=== PATIENT | male | born 1985 | race Caucasian/White ===

== ENCOUNTER 2019-04-09 20:53 | Emergency (ER) | payer OTHER ==
[~2019-04-09] VITALS: Ht 167.6 cm; Wt 95.3 kg
[~2019-04-09 20:53] MED LIST: CIPRO500 MG PO; IMODIUM A-D2 MG PO; LEVSINEX0.375 M1 PO
[2019-04-09] MEDS ORDERED: DOLOGEN CAPLET1 EACH PO (22:40)
[2019-04-09] MEDS ORDERED: OSEL75CA PO (22:40)
[2019-04-09] MEDS ORDERED: TUSNEL LIQUID178 ML PO (22:40)
[2019-04-09] MEDS ORDERED: XOFLUZA40 MG PO (22:40)
[2019-04-13] MEDS ORDERED: PROMETHAZINE-D473 M1 PO ×2 (04:34→04:37)
[2019-04-13] MEDS ORDERED: KETO10TA2 PO ×2 (04:34→04:37)
== END 2019-04-09 22:54 | disposition home or self-care (01) ==
LOC: ER 20:53
DX: J11.1 Influenza due to unidentified influenza virus with other respiratory manifestations (principal)

== ENCOUNTER → 2019-04-13 | Emergency (ER) | payer OTHER ==
[~2019-04-13] VITALS: Ht 167.6 cm; Wt 95.3 kg
[~2019-04-13] MED LIST changes: +DOLOGEN CAPLET1 EACH PO; +KETO10TA2 PO; +OSEL75CA PO; +PROMETHAZINE-D473 M1 PO; +TUSNEL LIQUID178 ML PO; +XOFLUZA40 MG PO
== END | disposition home or self-care (01) ==
LOC: ER 00:41
DX: H10.11 Acute atopic conjunctivitis, right eye (principal)